=== PATIENT | female | born 1985 | race Caucasian/White ===

== ENCOUNTER 2019-04-03 04:00 | Inpatient (IN) ==
[2019-04-03] MEDS ORDERED: Lidocaine 1% 20 ML MDV INFILT PRN (04:17)
[2019-04-03] MEDS ORDERED: Famotidine 20 MG/2 ML VIAL IVP PRN (04:17)
[2019-04-03] MEDS ORDERED: Ondansetron 4 MG/2 ML VIAL IVP PRN (04:17)
[2019-04-03] MEDS ORDERED: *HR* Nalbuphine 10 MG/ML AMPUL IVP PRN (04:17)
[2019-04-03] MEDS ORDERED: Naloxone 0.4 MG/ML INJ IVP PRN (04:17)
[2019-04-03] MEDS ORDERED: Metoclopramide 10 MG/2 ML VIAL IVP PRN (04:17)
[2019-04-03] MEDS ORDERED: miSOPROStol 25 MCG TABLET PO PRN (04:17)
[2019-04-03] MEDS ORDERED: Penicillin G Potassium 5,000,000 UNIT in 0.9 % Sodium Chloride Mini Bag 100 ML IVPB ONE (04:30)
[2019-04-03] MEDS ORDERED: Ringers Solution, Lactated 1,000 ML IVC SCH (04:30)
[2019-04-03] MEDS: Penicillin G Potassium 2,500,000 UNIT in 0.9 % Sodium Chloride 100 ML IVPB SCH ×3 (05:00→13:15)
[2019-04-03 05:05] LABS: Basophils % 0.3 %; Eosinophils # 0.1 K/mcL (0.0-0.6); Eosinophils % 0.9 %; Hematocrit 34.3 % (35.3-44.9); Hemoglobin 11.1 g/dL (11.5-15.4); Immature Granulocytes % 0.3 % (0-4); Lymphocytes # 2.4 K/mcL (0.6-4.6); Lymphocytes % 27.3 %; Mean Corpuscular HGB Conc 32.4 g/dL (31.6-35.5); Mean Corpuscular Hemoglobin 25.5 pg (28.0-33.3); Mean Corpuscular Volume 78.9 fL (83.0-100.0); Mean Platelet Volume 9.5 fL (9.4-12.4); Monocytes # 0.6 K/mcL (0.0-1.3); Monocytes % 6.8 %; Neutrophils # 5.8 K/mcL (1.6-8.9); Platelet Count 238 K/mcL (140-400); Red Blood Count 4.35 M/mcL (3.82-4.97); Red Cell Distribution Width 13.2 % (11.5-14.5); Segmented Neutrophils % 64.4 %
[2019-04-03 05:15] LABS: Amphetamine Screen,Urine Negative ng/mL (Cutoff=1000); Barbiturate Screen,Urine Negative ng/mL (Cutoff=200); Benzodiazepines Screen,Urine Negative ng/mL (Cutoff=200); Cannabinoid Screen,Urine Negative ng/mL (Cutoff = 50); Cocaine Screen,Urine Negative ng/mL (Cutoff= 300); Opiate Screen,Urine Negative ng/mL (Cutoff=300); Phencyclidine Screen,Urine Negative ng/mL (Cutoff=25)
--- NOTE | 2019-04-03 07:13 | OB/GYN History & Physical ---
Date of Encounter: 04/03/19 Time of Encounter: 07:09 Assessment and Plan (1) 39 weeks gestation of Current visit: Yes Status: Acute (2) Gestational diabetes Current visit: Yes Status: Acute Qualifiers: Gestational diabetes mellitus control: oral hypoglycemic-controlled Trimester: third trimester Qualified Code(s): O24.415 - Gestational diabetes mellitus in , controlled by oral hypoglycemic drugs (3) History of shoulder dystocia in prior Current visit: Yes Status: Acute History of Present Illness Chief complaint: induction HPI: Ms. Luciano is a 33 year old female presents today for induction of labor at 39 weeks and 1 day. She is doing well. She is having no complaints of any kind today. She has no drug allergies. She is currently on metformin. Chronic medical conditions include gestational diabetes. Surgical history is negative. Obstetric history significant for 2 term vaginal deliveries, shoulder dystocias. Family history significant for diabetes socially she denies tobacco, alcohol, illicit drug use. Past Med Surg Social Fam HX - Past Medical History Additional medical history: PCOS Psychiatric history: no psych history - Past Surgical History Surgical History: no surgical history - Social History Smoking Status: Never smoker Smokeless Tobacco Status: No Alcohol use: none Drug use: none - Family History Mother Living Status: Still Living Obstetrical History - Pregnancies : 4 Para: 2 Term: 2 Medications and Allergies metFORMIN [Glucophage] 1,000 mg PO HS 04/03/19 [History] metFORMIN [Glucophage] 500 mg PO 0800 04/03/19 [History] Allergy/AdvReac Type Severity Reaction Status Date / Time No Known Allergies Allergy Verified 04/03/19 04:39 Review of System OB All systems PM: reviewed and no additional remarkable complaints except as stated Exam - Constitutional Constitutional: well developed, well nourished, no acute distress, average body habitus - HEENT HEENT: EOMI, PERRL - Neck Neck exam: full ROM - Lungs Respiratory exam: CTAB - Cardiovascular Cardiovascular exam: RRR - Abdomen Abdomen: Present: bowel sounds normal, gravid, non tender - Extremities Extremities exam: full ROM - Vagina Vagina: Present: normal moisture - Cervix Dilation: 2 Effacement: 80 Station: -2 - Uterus Uterus exam: Present: normal size Results Result Diagrams: 04/03/19 04:48 04/03/19 04:48 Abnormal lab results Hgb 11.1 g/dL (11.5-15.4) L 04/03/19 04:48 Hct 34.3 % (35.3-44.9) L 04/03/19 04:48 MCV 78.9 fL (83.0-100.0) L 04/03/19 04:48 MCH 25.5 pg (28.0-33.3) L 04/03/19 04:48 All other labs normal. - VTE Reasons for not Prescribing Prophylaxis: Treatment not Indicated - Low risk for VTE
[2019-04-03] MEDS ORDERED: Oxytocin 20 units/ LR 1000 mL 20 UNIT/1,000 ML BAG IVC SCH ×2 (08:30→18:38)
--- NOTE | 2019-04-03 10:12 | OB Labor Progress Note ---
Date of Encounter: 04/03/19 Time of Encounter: 10:10 Labor Progress Note - Subjective Subjective: Pt reports pain is increasing with contractions. - Cervix Cervix: 6/80/-2 - Heart Tones Heart Tones: Category I - [place]: 2-2.5 minutes - Interventions Interventions: AROM for large amount light meconium stained fluid. IUPC placed. - Plan Plan: Continue to monitor. Anticipate .
--- NOTE | 2019-04-03 10:38 | Anesthesia Evaluation PreOp ---
Date of Encounter: 04/03/19 Time of Encounter: 10:00 - Past History Planned Operation: [place] Cardiac History: Denies any Significant Hx Pulmonary History: Denies Any Significant HX SANITATION ASSOCIATE History: Denies Any Significant HX Other Medical History: Other (gestational DM) Anesthesia History: No Prior Anesthetic Complications (never had any procedure requiring GA; denies family h/o GA complications), Past Anesthesia (CLEx1--no complications) : Yes Alcohol Use: none Drug use: none Medications and Allergies metFORMIN [Glucophage] 1,000 mg PO HS 04/03/19 [History] metFORMIN [Glucophage] 500 mg PO 0800 04/03/19 [History] Allergy/AdvReac Type Severity Reaction Status Date / Time No Known Allergies Allergy Verified 04/03/19 04:39 - Meds/Allergy Pre-op Review Medications Reviewed: Yes Allergies Reviewed: Yes Beta Blockers on Current Med List: No Anesthesia Results - Labs 04/03/19 04:48 04/03/19 04:48 Anesthesia Exam 126/76, HR 87 O2 Sat Height 1.57 m Weight 88.587 kg NPO (# of Hours): solids >8hrs - HEENT Pupil (Motor): Pupils equal Mallampati: II Teeth: Normal Oral Opening: Greater than 3 - SANITATION ASSOCIATE LOC: Oriented SANITATION ASSOCIATE Motor: Normal RUE, Normal LUE, Normal RLE, Normal LLE, Normal Face SANITATION ASSOCIATE Sensory: Normal: RUE, LUE, RLE, LLE, Face - Cardiac Rhythm: Regular Murmur: None - Pulmonary Breath Sounds: bilateral Clear Respiratory Effort: Symmetrical Anesthesia Assess/Plan ASA Score: 2 Level of consciousness: Cooperative, Oriented, Tranquil Anesthetic Plan: Epidural Autologous Blood: No Monitoring Plan: Standard Monitors Recovery Plan: Other
[2019-04-03] MEDS ORDERED: *HR* FentaNYL (PF) 100 MCG/2 ML VIAL EP ONE (10:39)
[2019-04-03] MEDS ORDERED: Bupivacaine-MPF 0.25% 10 ML VIAL EP ONE (10:39)
[2019-04-03] MEDS ORDERED: Epidural Premix (fent/bupiv) 110 ML EP SCH (10:45)
--- NOTE | 2019-04-03 14:55 | Anesthesia Procedures ---
Date of Encounter: 04/03/19 Time of Encounter: 14:52 Procedures: Anesthesia - Epidural/Spinal Patient ID/Chart reviewed: Yes Patient examined: Yes OB Eval: Gestational age: 39 weeks 1 day OB Eval: : 3 OB Eval: Hx Para: 2 OB Eval: Dilated at (cm): 6 OB Eval: Contractions: Non-stressed pattern Consent Obtained: Yes Site Prep: Aseptic Technique, Sterile prep and drape, 0.5% Chlorhexidine/Alcohol Patient position: upright Local Anesthetic: Lidocaine 1% Amount of Local Anesthetic used: 3 Touhy Needle Gauge: 18 Touhy Needle Depth (cm): 6 Catheter Depth at Skin (cm): 11 Test Dose (1.5% Lido + Epi): Volume given (mls): 5 Test Dose Result: Negative Loading Dose: 0.25% Marcaine (mls): 5 Loading Dose: Fentanyl (mcg): 100 Loading Dose Administered: Thru Catheter Infusion Med: 0.125% Bupivacaine w/ 2 mcg/ml Fentanyl Infusion Rate (mls/hr): 14 (w/ demand bolus of 5mL q30min PRN) Catheter Secured in Place: Tegaderm, Tape Interspace Used: L3-L4 Loss of Resistance (KAMARI): Yes Blood: No CSF: No Paresthesia: No Procedure: successful on 1st attempt; patient tolerated procedure well; VSS Vitals + FHT's: see [facility]'s electronic records for VS entry
--- NOTE | 2019-04-03 16:24 | OB/GYN Procedure Note ---
Delivery - Delivery Date: 04/03/19 Provider: Keaton Schaefer Intrapartum events: none Delivery induction: green, misoprostol Delivery augmentation: rupture of membranes, pitocin Delivery monitor: external FHT, external uterine Anesthesia: epidural Quantitated Blood Loss: 200 - Infant (s) Infant A Delivery Date: 04/03/19 Delivery Time: 16:06 Presentation: vertex Position: OA Route of delivery: Gender: Female Viability: Viable at 1 minute: 8 at 5 mins: 9 Shoulder Dystocia: not encountered Placenta: spontaneous Cord: 3 umbilical vessels - Repair Episiotomy: none Laceration Description: Perineal - 1st Degree - Complications Delivery complications: none - Disposition Mom disposition: stable in LDR disposition: stable in LDR - Comments Comments: Patient progressed to complete and pushing. Patient was doing well with pushing. This patient had previous shoulder dystocias nursing was prepared and everyone was in room ready for shoulder dystocia. Patient was able to push infant's head on the perineum without any difficulty. The rest of the was then delivered easily. Shoulder dystocia was not encountered. cried immediately upon delivery. The cord was clamped cut. The was in past nurse in attendance. Cord blood was obtained. Placenta was delivered spontaneously intact. There are no cervical, vaginal or periurethral lacerat ions noted. There was a first-degree perineal laceration which was repaired with 3-0 Vicryl suture in usual fashion. Patient delivered a female infant. Patient is skin to skin with . Weight will be pending. Apgars are 8 at 1 minute and 9 at 5 minutes. Estimated blood loss 200 mL.
[2019-04-03] MEDS ORDERED: Measles/Mumps/Rubella Vacc 0.5 ML VIAL SQ PRN (18:38)
[2019-04-04] MEDS: Acetaminophen 325 MG TABLET PO PRN ×2 (02:46→08:11)
[2019-04-04 05:31] LABS: Basophils % 0.2 %; Eosinophils % 0.3 %; Hemoglobin 10.1 g/dL (11.5-15.4); Immature Granulocytes % 0.4 % (0-4); Lymphocytes # 2.3 K/mcL (0.6-4.6); Lymphocytes % 18.5 %; Mean Corpuscular HGB Conc 31.6 g/dL (31.6-35.5); Mean Corpuscular Hemoglobin 25.1 pg (28.0-33.3); Mean Corpuscular Volume 79.6 fL (83.0-100.0); Mean Platelet Volume 10.3 fL (9.4-12.4); Monocytes % 7.6 %; Neutrophils # 9.2 K/mcL (1.6-8.9); Platelet Count 229 K/mcL (140-400); Red Blood Count 4.02 M/mcL (3.82-4.97); Red Cell Distribution Width 13.2 % (11.5-14.5)
[2019-04-04 08:55] VITALS: BP 110/64
[2019-04-04] MEDS ORDERED: Prenatal Vit/FA 1 EACH TABLET PO SCH (09:00)
--- NOTE | 2019-04-04 10:07 | Discharge Summary ---
Date of Encounter: 04/04/19 Time of Encounter: 10:04 - Discharge Diagnosis (1) Vaginal delivery Priority: Primary Status: Acute Comments: Stable in PP, meeting all pp milestones, pain well managed, bleeding minimal, bottle feeding, desires discharge - Discharge Medications Prescriptions: New Ferrous Sulfate 325 mg PO DAILY tablet Acetaminophen [Tylenol] 650 mg PO Q6HR PRN tablet PRN Reason: Mild Pain Docusate [Colace] 100 mg PO BID capsule Discontinued metFORMIN [Glucophage] 500 mg PO 0800 metFORMIN [Glucophage] 1,000 mg PO HS Home Medications: Acetaminophen [Tylenol] 650 mg PO Q6HR PRN tablet 04/04/19 [Rx] Docusate [Colace] 100 mg PO BID capsule 04/04/19 [Rx] Ferrous Sulfate 325 mg PO DAILY tablet 04/04/19 [Rx] Allergies/Adverse Reactions: Allergy/AdvReac Type Severity Reaction Status Date / Time No Known Allergies Allergy Verified 04/03/19 04:39 Data Procedures and tests throughout hospitalization: Laboratory Tests 04/03/19 04/03/19 04/03/19 04:48 04:48 04:48 WBC 8.9 RBC 4.35 Hgb 11.1 L Hct 34.3 L MCV 78.9 L MCH 25.5 L MCHC 32.4 RDW 13.2 Plt Count 238 MPV 9.5 Immature Gran % 0.3 Seg Neutrophils % 64.4 Lymphocytes % 27.3 Monocytes % 6.8 Eosinophils % 0.9 Basophils % 0.3 Neutrophils # 5.8 Lymphocytes # 2.4 Monocytes # 0.6 Eosinophils # 0.1 Basophils # 0.0 Glucose 97 POC Glucose Urine Opiates Screen Negative Ur Barbiturates Screen Negative Ur Phencyclidine Scrn Negative Ur Amphetamines Screen Negative U Benzodiazepines Scrn Negative Urine Cocaine Screen Negative U Marijuana (THC) Screen Negative Ur Drug Screen Interp See Below 04/03/19 04/04/19 19:55 04:48 WBC 12.6 H RBC 4.02 Hgb 10.1 L Hct 32.0 L MCV 79.6 L MCH 25.1 L MCHC 31.6 RDW 13.2 Plt Count 229 MPV 10.3 Immature Gran % 0.4 Seg Neutrophils % 73.0 Lymphocytes % 18.5 Monocytes % 7.6 Eosinophils % 0.3 Basophils % 0.2 Neutrophils # 9.2 H Lymphocytes # 2.3 Monocytes # 1.0 Eosinophils # 0.0 Basophils # 0.0 Glucose POC Glucose 155 H Urine Opiates Screen Ur Barbiturates Screen Ur Phencyclidine Scrn Ur Amphetamines Screen U Benzodiazepines Scrn Urine Cocaine Screen U Marijuana (THC) Screen Ur Drug Screen Interp Labs on day of discharge: Labs from last 24 hours 04/04/19 04/03/19 04:48 19:55 WBC 12.6 H RBC 4.02 Hgb 10.1 L Hct 32.0 L MCV 79.6 L MCH 25.1 L MCHC 31.6 RDW 13.2 Plt Count 229 MPV 10.3 Immature Gran % 0.4 Seg Neutrophils % 73.0 Lymphocytes % 18.5 Monocytes % 7.6 Eosinophils % 0.3 Basophils % 0.2 Neutrophils # 9.2 H Lymphocytes # 2.3 Monocytes # 1.0 Eosinophils # 0.0 Basophils # 0.0 POC Glucose 155 H Date of admission: 04/03/19 04:13 Primary care physician: PCP NONE Consults: 04/03/19 18:38 Consult to [employer] [CONS] Routine Comment: Vaginal delivery, consult needed Discharging clinician: Renea Black Anticipated date of discharge: 04/04/19 - Patient Status Disposition: Home, Self-Care Condition: Good Functional capacity at discharge: independent ambulation Overall status at discharge: patient is back to baseline - Discharge Instructions Follow Up With: NONE,PCP [Primary Care Provider] - - Diet and Activity Activity: resume usual activities as tolerated Diet: regular diet Hospital Course Reason for admission: induction of labor, IUP at term Delivery: Episiotomy: none Laceration: 1st degree Other procedures: none complications: none Discharge diagnosis: IUP at term delivered [place] baby: female Hospital course: Delivery - Delivery Date: 04/03/19 Provider: Keaton Schaefer Intrapartum events: none Delivery induction: green, misoprostol Delivery augmentation: rupture of membranes, pitocin Delivery monitor: external FHT, external uterine Anesthesia: epidural Quantitated Blood Loss: 200 - Infant (s) Infant A Delivery Date: 04/03/19 Infant Delivery Time: 16:06 Presentation: vertex Position: OA Route of delivery: Gender: Female Viability: Viable at 1 minute: 8 at 5 mins: 9 Shoulder Dystocia: not encountered Placenta: spontaneous Cord: 3 umbilical vessels - Repair Episiotomy: none Laceration Description: Perineal - 1st Degree - Complications Delivery complications: none - Disposition Mom disposition: stable in PP and appropriate for discharge Time Attestation: Total time spent providing and/or coordinating discharge services: Time Spent: Less than 30 minutes Exam - Constitutional Vitals: Temp Pulse Resp BP Pulse Ox 97.9 F 78 16 110/64 98 04/04/19 08:52 04/04/19 08:52 04/04/19 08:52 04/04/19 08:52 04/04/19 08:52 General appearance IM: A&O X 3 - Respiratory Respiratory exam: Present: CTAB - Cardiovascular Cardiovascular exam IM: Present: RRR - GI/Abdominal GI/Abdominal exam IM: soft - External exam: swelling Uterus Position: 1 Finger Below Umbilicus - Extremities Exam Extremities exam IM: Present: normal capillary refill, pedal edema - Neurological Exam Neurological exam: normal gait, oriented X3 - Psychiatric Additional comments: reports good mood
== END 2019-04-04 17:05 | disposition home or self-care (01) | DRG 807 ==
LOC: 1NENULAB 04:13 → 1NENUOBS 18:37
PROVIDERS: ADMIT Obstetrics & Gynecology; ATTEND Obstetrics & Gynecology